=== PATIENT | male | born 1975 | race Caucasian/White ===

== ENCOUNTER 2016-08-12 11:39 | Day surgery (SDC) | payer BC ==
[2016-08-10 18:33] LABS: BASOPHILS 0.4 %; BASOPHILS ABSOLUTE 0.03 10/3/uL (0.0-0.16); EOSINOPHILS 6.3 %; HEMATOCRIT 40.7 % (40.0-51.0); HEMOGLOBIN 14.3 g/dL (13.6-17.8); IMMATURE GRANULOCYTES 0.5 %; IMMATURE GRANULOCYTES ABSOLUTE 0.04 10/3/uL (0.0-0.11); LYMPHOCYTES 31.6 %; LYMPHOCYTES ABSOLUTE 2.51 10/3/uL (0.67-4.30); MEAN CORPUS HGB CONC 35.1 g/dL (32.0-36.0); MEAN CORPUSCULAR HEMOGLOB 31.7 pg (26.0-34.0); MEAN CORPUSCULAR VOLUME 90.2 fL (80-100); MEAN PLATELET VOLUME 9.7 fL (9.2-13.0); MONOCYTES 9.4 %; MONOCYTES ABSOLUTE 0.75 10/3/uL (0.21-1.20); NEUTROPHILS 51.8 %; NEUTROPHILS ABSOLUTE 4.11 10/3/uL (2.02-8.40); PLATELET COUNT 233 10/3/uL (150-400); RBC DISTRIBUTION WIDTH 12.7 % (12.0-16.0); RED CELL COUNT 4.51 10/6/uL (4.7-6.1); WHITE BLOOD CELLS 7.9 10/3/uL (4.5-10.5)
[2016-08-10 18:35] LABS: MANUAL DIFF NO %
--- NOTE | ~2016-08-12 | OP ---
Record Of Operation [facility] [address] [place]. [address] NAME: JULIA AGEE JR : 77 STATUS : [facility]#: [id number] AGE: 41 ADM/REG DATE : 08/12/16 MR#: [id number] REPORT SERV DATE: 08/13/16 DICTATED BY: JULIA CABRERA DATE: 08/12/16 REPORT STATUS : Draft TRANSCRIBED BY: MODL DATE: 08/12/16 DATE OF PROCEDURE: 08/12/2016 PREOPERATIVE DIAGNOSIS: Benign prostatic hyperplasia with obstruction. POSTOPERATIVE DIAGNOSIS: Benign prostatic hyperplasia with obstruction. PROCEDURE PERFORMED: Holmium laser ablation of prostate. ANESTHESIA: General. SPECIMEN: None. BLOOD LOSS: 5 mL. DRAINS: Twenty-Georgian [address] catheter. INDICATION: Mr. Agee is a 41-year-old with persistent and worsening obstructive urinary symptoms despite double-dose Flomax. PSA is normal. Digital rectal exam shows mild enlargement. His father and maternal grandfather had TURPs in their late 40s or 50s. He presents for Holmium laser ablation of prostate for presumed bladder outlet obstruction from BPH. TECHNIQUE: Ancef and gentamicin were given preoperative. He was brought to the operating room. General anesthesia was administered. Genitals and Perineum were prepped and draped in the lithotomy position. Digital rectal exam showed a 30 g palpably benign prostate. Rigid cystoscopy was performed. The urethra was normal. Prostate showed a small median lobe with kissing lateral lobes. They were mildly inflamed. The bladder was inspected. There was clear efflux in the right and left UOs. No papillary lesions, tumors, or stones in the bladder. The cystoscope was removed. I placed a 24-Georgian sheath with a laser guide allowing for continuous irrigation, normal saline was used for irrigation. I passed a 550 micron holmium side firing laser fiber. The small amount of median lobe tissue and midline tissue was ablated from the bladder neck down to the verumontanum. Next, the right and left lateral lobes were ablated. This yielded an unobstructed view from the verumontanum through the bladder neck. No tissue beyond the verumontanum was ablated. The bladder was inspected. There were UOs effluxing clear. No significant tissue remained, ablated tissue was evacuated and not sent for pathologic analysis. I removed the scope placed a 20-[address] catheter with 20 mL in the balloon. Catheter irrigated well. It was connected to a drainage bag. He will have his Cabrera catheter removed on postop day #1. He will continue Flomax for one month postop. FABIOLA/DAMIR Julia Vizcaino Record Of Operation [address] [address] NAME: JULIA AGEE : 77 STATUS : [facility] PAT#: [id number] AGE: 41 ADM/REG DATE : 08/12/16 MR#: [id number] REPORT SERV DATE: 08/13/16 DICTATED BY: JULIA CABRERA DATE: 08/12/16 REPORT STATUS : Draft TRANSCRIBED BY: DAMIR DATE: 08/12/16 Maria Eugenia Cabrera / [id number] CC: Maria Eugenia Robledo II, M.D.
[~2016-08-12 11:39] MED LIST: EFFEX75 PO; FLOMAX4 PO
== END 2016-08-12 21:08 | disposition home or self-care (01) ==
LOC: SDC 11:39
PROVIDERS: Urology
PROC: 0V508ZZ Destruction of Prostate, Via Natural or Artificial Opening Endoscopic (ICD-10-PCS; principal; 2016-08-12 14:00)
DX: N40.0 Benign prostatic hyperplasia without lower urinary tract symptoms (principal); G47.33 Obstructive sleep apnea (adult) (pediatric); K21.9 Gastro-esophageal reflux disease without esophagitis; F41.9 Anxiety disorder, unspecified; F32.9 Major depressive disorder, single episode, unspecified; Z99.81 Dependence on supplemental oxygen
CPT/HCPCS: 85025; A9270-GY; J0690; J1580; J2250; J2270; J2405; J2710; J3010